=== PATIENT | male | born 1965 | race African-American/Black ===

== ENCOUNTER 2023-05-25 10:04 | Observation (INO) ==
--- NOTE | 2023-05-04 11:36 | PAT Medication Instructions ---
Medication Instructions Date of Service May 04, 2023 Home Medications albuterol sulfate 90 mcg/actuation aerosol inhaler (Ventolin HFA) 1 inh inhalation QID PRN apixaban 5 mg tablet (Eliquis) 5 mg PO BID budesonide-formoterol HFA 160 mcg-4.5 mcg/actuation aerosol inhaler (Symbicort) 1 inh inhalation BID furosemide 40 mg tablet (Lasix) 40 mg PO QAM metformin 500 mg tablet 500 mg PO BID montelukast 10 mg tablet 10 mg PO QAM sacubitril 24 mg-valsartan 26 mg tablet (Entresto) 1 tab PO BID dulaglutide 0.75 mg/0.5 mL subcutaneous pen injector (Trulicity) 0.75 mg subcut WK MEDICATION INSTRUCTIONS: Continue as directed albuterol sulfate 90 mcg/actuation aerosol inhaler (Ventolin HFA) 1 inh inhalation QID PRN (use if needed; BRING TO HOSPITAL) budesonide-formoterol HFA 160 mcg-4.5 mcg/actuation aerosol inhaler (Symbicort) 1 inh inhalation BID ASK your prescriber and surgeon apixaban 5 mg tablet (Eliquis) 5 mg PO BID (for spinal anesthesia: will need to hold Eliquis/apixaban at least 72 hours prior to surgery) DO NOT take the morning of surgery metformin 500 mg tablet 500 mg PO BID furosemide 40 mg tablet (Lasix) 40 mg PO QAM sacubitril 24 mg-valsartan 26 mg tablet (Entresto) 1 tab PO BID Take morning of surgery With a small sip of water, OTHERWISE NOTHING TO EAT OR DRINK AFTER MIDNIGHT: montelukast 10 mg tablet 10 mg PO QAM Take evening before surgery metformin 500 mg tablet 500 mg PO BID sacubitril 24 mg-valsartan 26 mg tablet (Entresto) 1 tab PO BID Other Notes HOLD 7 DAYS PRIOR TO SURGERY: dulaglutide 0.75 mg/0.5 mL subcutaneous pen injector (Trulicity) 0.75 mg subcut WK (Please contact prescriber to let them know that you will be holding this medication prior to surgery. If they would like to add/substitute another medication in the meantime, please contact [facility] at the below number to update) If you have any questions please call us at [phone] or [phone] or [phone] or [phone]
--- NOTE | 2023-05-07 13:18 | Anesthesiology Consultation ---
Date of Service May 07, 2023 Assessment & Plan (1) Encounter for pre-operative examination: - Check BSG AM DOS - Infectious disease screening: Per assessment on 05/07/23: No known infectious disease contacts. Patient with recent sinus infection 2 weeks ago with persistent congestion. Currently on 10 day course of Cipro (switched from doxycycline d/t adverse reaction). Patient states Covid home test has been negative. Covid test performed at [facility] 05/07/23 came back negative. Patient to finish abx and monitor symptoms. Okay to proceed pending evaluation DOS. - Outpatient joint assessment: Pt currently scheduled for inpatient pathway. If surgeon requests review for outpatient joint pathway, patient is not recommended candidate for outpatient joint program from anesthesia standpoint based on available information. - S/P Left TKA (11/27/15): SAB at L3/4 x2 + PNB at [facility] - Cardiology visit (10/22/22): "NICM, CHF, HTN, Afib.. Yearly F/U.. Nonischemic cardiomyopathyrecovered LV function, with normal coronary arteries. Currently on Aldactone and Entresto.. Congestive heart failurehistory of, EF 39% by MRI 2018, EF normalized by echo 12/2020, NYHA class II, appears euvolemic.. Hypertensionbenign essential, controlled.. Atrial fibrillationparoxysmal, noted on recent CardioNet, is currently in sinus rhythm, has been essentially asymptomatic.[id number] score 2 (CHF NYHA II, HTN), monitor, continue Eliquis, declining ablation" > One year f/u recommended. - Eliquis instructions: patient made aware that in order for spinal anesthesia, Eliquis needs to be held 72 hours prior to surgery. Patient voiced understanding/will check if okay with prescriber. - Trulicity instructions: Patient takes on Sundays. Patient informed at PAT visit to stop 7 days prior to surgery- voiced understanding. DOS 05/25. Advised last dose 05/16. Patient advised to check with prescriber to see if alternative diabetic management changes recommended while holding Trulicity. Chart Review Chart Review: Acceptable Risk for Surgery and Patient seen in Pre Admission Testing Teaching & Discussion Pre-Anesthesia Teaching/Discussion Notes: Instructed NPO after midnight before surgery,except medications with 15 cc of water. Medication instructions provided according to the PAT guidelines. History Surgery Operation Date: 05/25/23 09:45 Proposed Procedures p Right Total Knee Arthroplasty - Chaitanya Ellis DO Height/Weight Height: 6 ft 2.5 in Weight: 139.253 kg Allergies Allergy/AdvReac Type Severity Reaction Status Date / Time Penicillins Allergy Mild Rash Verified 05/03/23 13:14 doxycycline AdvReac Genital Verified 05/07/23 13:40 outbreak Medications Home Medications Medication Instructions Recorded Confirmed Last Taken albuterol sulfate 90 mcg/actuation 1 inh inhalation QID PRN SHORT OF 08/26/22 05/03/23 Unknown aerosol inhaler (Ventolin HFA) BREATH apixaban 5 mg tablet (Eliquis) 5 mg PO BID 08/26/22 05/03/23 Unknown budesonide-formoterol HFA 160 1 inh inhalation BID 08/26/22 05/03/23 Unknown mcg-4.5 mcg/actuation aerosol inhaler (Symbicort) furosemide 40 mg tablet (Lasix) 40 mg PO QAM 08/26/22 05/03/23 Unknown metformin 500 mg tablet 500 mg PO BID 08/26/22 05/03/23 Unknown montelukast 10 mg tablet 10 mg PO QAM 08/26/22 05/03/23 Unknown sacubitril 24 mg-valsartan 26 mg 1 tab PO BID 08/26/22 05/03/23 Unknown tablet (Entresto) dulaglutide 0.75 mg/0.5 mL 0.75 mg subcut WK 05/03/23 05/03/23 05/02/23 subcutaneous pen injector (Trulicity) Past Medical History Medical History Asthma Atrial fibrillation Follows with Dr. Glil CHF (congestive heart failure) Chronic obstructive pulmonary disease Diabetes mellitus, type 2 GERD (gastroesophageal reflux disease) Hypertension NICM (nonischemic cardiomyopathy) Obesity Scoliosis No surgical intervention or bracing needed Sleep apnea BIPAP (compliant) Exercise / Class Metabolic Activity II 4-5 Yardwork/Stairs/Walk up hill (one FS (no CP, no SOB)) Past Family History Family History Other No family history of adverse response to anesthesia Past Surgical History Surgical History H/O sinus surgery H/O thumb surgery Tendon repair History of colonoscopy History of total knee replacement Left TKA (11/27/15): SAB at L3/4 x2 + PNB at [facility] Past Anesthesia History No Hx of Anesthesia Complications and No Family Hx of Anesthesia Complications History of PONV No Hx of PONV and No Hx of Motion Sickness Social History Smoking Status: Current every day smoker tobacco type: cigarettes Smoking cigarettes per day: 15 cigs/day Do You Dip or Chew Tobacco: No Hx Alcohol Use: Yes Alcohol type: hard liquor alcohol intake frequency: a few times a month Hx Substance Use: No substance use type: does not use Review of Systems Patient denies chest pain, shortness of breath, dyspnea on exertion, fever, chills, cough, wheezing, palpitations. Physical Exam Vital Signs VITALS BP 122/77 P 98 TEMP 98.8 SP02 97%RA RESP 16 PHYSICAL Full cervical extension range of motion. Full TMJ range of motion. TMD 4 finger breaths Mallampati Score 3 Dentition: + cracked tooth (right upper side) Lungs: clear throughout to auscultation Cardiac: regular rate and rhythm, no murmurs noted Spine: normal Carotid arteries: negative bruit Extremities: no LE edema Lab Results Anesthesia Preop Results Results Anesthesia Widget: WBC 8.25 K/ul (4.8-10.8) 05/07/23 Hgb 13.8 g/dl (14.0-18.0) L 05/07/23 Hct 42.5 % (42.0-52.0) 05/07/23 Plt 236 K/uL (130-400) 05/07/23 Na 137 mmol/L (136-145) 05/07/23 K 4.1 mmol/L (3.5-5.1) 05/07/23 Cl 105 mmol/L (98-107) 05/07/23 CO2 26 mmol/L (21-32) 05/07/23 BUN 13 mg/dl (6-23) 05/07/23 Creat 1.07 mg/dl (0.6-1.4) 05/07/23 Glucose Level 142 mg/dl (70-99(Fasting)) H 05/07/23 PT 10.3 Seconds (9.0-12.0) 05/07/23 PTT 27.9 Seconds (21.0-31.0) 05/07/23 INR 0.9 (0.9-1.1) 05/07/23 HA1c 6.6 % (4.5-5.6) H 05/07/23 Urine Color Yellow 05/07/23 Urine Appearance Clear (Clear) 05/07/23 Urine pH 5.5 (4.5-7.5) 05/07/23 Urine Specific Manson 1.016 (1.000-1.030) 05/07/23 Urine Protein Negative (Negative) 05/07/23 Urine Glucose (UA) Negative (Negative) 05/07/23 Urine Ketones Negative (Negative) 05/07/23 Urine Blood Negative (Negative) 05/07/23 Urine Nitrite Negative (Negative) 05/07/23 Urine Bilirubin Negative (Negative) 05/07/23 Urine Urobilinogen Negative (Negative) 05/07/23 Urine Leukocyte Esterase Negative (Negative) 05/07/23 Blood Type B Positive 05/07/23 Antibody Screen NEGATIVE 05/07/23 Testing Electrocardiogram Date: 08/28/22 Findings: + SB @ (59bpm ) Otherwise normal EKG per cardio. Chest X-Ray Date: 08/28/22 Findings: + NAD FINDINGS: PA and lateral chest radiographs are compared to study dated 11/11/2015. The cardiomediastinal silhouette is top normal for projection. The lungs and pleural spaces are clear noting bibasilar atelectasis. There is no pneumothorax. The bony thorax appears intact. Degenerative change and scoliosis is noted in the spine. Echocardiogram Date: 10/15/20 EF: 55-60% LV Function: normal Other Findings: + diastolic dysfunction (Grade 1) LA mildly enlarged Ascending aorta is dilated at 4.2 cm Cardiac Catheterization Date: 06/2018 " EF 40%, angiographically normal coronaries" per received 10/2022 cardiology office visit note. Attempts to obtain official report unsuccessful. Other Testing Cardiac MRI Date: 08/2018 "Mildly dilated LV, EF 39%, diffuse LV hypokinesis, no abnormal late gadolinium enhancement to suggest prior infarct/scar/infiltrative CMP, no LVH or HCM, moderate byatrial enlargement, mild MR/TR" per received 10/2022 cardiology office visit note. Attempts to obtain official report unsuccessful.
--- NOTE | 2023-05-11 08:06 | History & Physical Report ---
Date of Service May 11, 2023 date of surgery: 05/25/23 Procedure: Right Total Knee Arthroplasty Surgeon: Chaitanya Ellis Assessment & Plan (1) Arthritis of right knee: Plan: Risk and benefits of the procedure discussed in detail, patient like to proceed with a right total knee replacement. We will resume his Eliquis postoperatively for DVT prophylaxis. We will plan an overnight stay in the hospital, he would like to be discharged home with outpatient physical therapy, he would like to go to our facility in [place]. He will follow-up 2 weeks postop for routine postoperative care or sooner if is having any problems otherwise has no other questions or concerns The risks and benefits have been discussed including, but not limited to, risk of infection, nerve injury, stiffness, loss of motion, failure to improve, etc. Reasonable outcomes and options of treatment were discussed. An explanation of appropriate alternatives to the procedure that may be advantageous were discussed and their risks and benefits, as well as the risks and benefits of not proceeding with treatment. I offered to answer any additional inquiries concerning the treatment involved. All the patient's questions were answered. The patient is agreeable, understanding of the treatment plan and alternatives, and wishes to proceed with the treatment plan. History of Present Illness Chief Complaint: Right knee pain Primary Care Provider: Chirag France MD Nolan is a pleasant 57-year-old male presents for preop evaluation prior to his right knee replacement. Nolan has been having pain in his knee for many years now is gradually worsening. He has tried previous corticosteroid injection as well as oral anti-inflammatories and Tylenol without any relief. His pain is now affecting his daily activities rates current pain is 7 out of 10. He admits to pain, stiffness and difficulty with stairs. This point time is failed conservative measures and would like to proceed with a right total knee replacement. He is now unable to take anti-inflammatories due to being on Eliquis Allergies Allergy/AdvReac Type Severity Reaction Status Date / Time Penicillins Allergy Mild Rash Verified 05/03/23 13:14 doxycycline AdvReac Genital Verified 05/07/23 13:40 outbreak Home Medications Medication Instructions Recorded Confirmed Type albuterol sulfate 90 mcg/actuation 1 inh inhalation QID PRN SHORT OF 08/26/22 05/03/23 History aerosol inhaler (Ventolin HFA) BREATH apixaban 5 mg tablet (Eliquis) 5 mg PO BID 08/26/22 05/03/23 History budesonide-formoterol HFA 160 1 inh inhalation BID 08/26/22 05/03/23 History mcg-4.5 mcg/actuation aerosol inhaler (Symbicort) furosemide 40 mg tablet (Lasix) 40 mg PO QAM 08/26/22 05/03/23 History metformin 500 mg tablet 500 mg PO BID 08/26/22 05/03/23 History montelukast 10 mg tablet 10 mg PO QAM 08/26/22 05/03/23 History sacubitril 24 mg-valsartan 26 mg 1 tab PO BID 08/26/22 05/03/23 History tablet (Entresto) dulaglutide 0.75 mg/0.5 mL 0.75 mg subcut WK 05/03/23 05/03/23 History subcutaneous pen injector (Trulicity) Past Med/Surg History Medical History Asthma Atrial fibrillation Follows with Dr. Gill CHF (congestive heart failure) Chronic obstructive pulmonary disease Diabetes mellitus, type 2 GERD (gastroesophageal reflux disease) Hypertension NICM (nonischemic cardiomyopathy) Obesity Scoliosis No surgical intervention or bracing needed Sleep apnea BIPAP (compliant) Surgical History H/O sinus surgery H/O thumb surgery Tendon repair History of colonoscopy History of total knee replacement Left TKA (11/27/15): SAB at L3/4 x2 + PNB at [facility] Family History Other No family history of adverse response to anesthesia Social History Smoking Status: Current every day smoker Tobacco Type: Cigarettes Cigarettes Per Day: 15 cigs/day; Second Hand Exposure: No; Do You Dip or Chew Tobacco: No; Hx Alcohol Use: Yes Alcohol type: hard liquor Hx Substance Use: No Preferred Language: [place] Communication Ability: Effective 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 Beliefs That Will Affect Care: None Current Living Situation: Significant Other Feels Safe at Home: Yes Assistive Devices: BiPap and Glasses Review of Systems Review of Systems: All systems reviewed & are unremarkable except as noted in HPI & below Constitutional: no fever, no chills and no sweats Respiratory: no cough and no dyspnea Cardiovascular: no chest pain, no dyspnea and no orthopnea Gastrointestinal: no abdominal pain, no nausea and no vomiting Musculoskeletal: as per Subjective / HPI Physical Exam Constitutional: WD/WN, vitals as above no acute distress Respiratory: normal respiratory effort, lungs clear to auscultation no respiratory distress, no labored breathing and does not use accessory muscles Cardiovascular: Heart Sounds: no murmur and no cardiac rub Gastrointestinal (Abdomen): normal bowel sounds, soft, nontender, no hepatosplenomegaly Musculoskeletal: Knee: + knee abnormal to inspection (Right Knee: ), + effusion (+1 effusion), + limited ROM of knee (ROM 0/3/110), + knee ROM with crepitation, + joint line tenderness (medial joint line) and + Julia's sign positive; no deformity, no skin erythema, no ecchymosis, no valgus laxity, no varus laxity, anterior drawer test negative, Destin's sign negative and pivot shift test negative Results & Data Results & Data Diagnostic Findings Right Knee X-ray: Right knee series showing advanced degenerative changes to the right knee, narrowing of the medial compartment and patello-femoral joint with patellar spurring noted, findings showing joint space narrowing of the medial compartment and patello-femoral joint, osteophyte formation and subchondral sclerosis noted. overall varus alignment. no acute bony pathology noted.
[~2023-05-25 10:04] MED LIST: ACETAMINOPHEN 500 MG TAB PO SCH; ALLERGY Noted to ORDERED Medication SCH; BUPIVACAINE 0.5 % 5 MG/1 ML PF 10ML VIAL ONE; CeleBREX 200 MG CAP PO SCH; FAMOTIDINE 20 MG TAB PO SCH; GABAPENTIN 600 MG DOSE PO SCH; LR 500ML BOLUS, THEN 15ML/HR IV SCH; LR 60ML/HR IV SCH; METOCLOPRAMIDE HCL 10 MG TABLET PO SCH; ROPIVACAINE 0.5% 5 MG/ML 30 ML VIAL ONE; ROPIVACAINE 0.5% HCL/PF 150 MG, BUPIVACAINE 0.75% MPF 20 ML, EPINEPHrine 30MG/30ML (OR ... INSTIL SCH; TRANEXAMIC ACID 1,000 MG **IV Intra-op IV SCH; TRANEXAMIC ACID 1,000 MG **IV Pre-op IV SCH; VANCOMYCIN HCL 2,000 MG in SODIUM CHLORIDE 0.9% 500 ML IV SCH; dexAMETHasone 4 MG TAB PO SCH
--- NOTE | 2023-05-25 11:22 | History & Physical Bridge Note ---
Date of Service May 25, 2023 History & Physical Bridge Note I have examined the patient, reviewed the History & Physical and in the interval since the performance of the History & Physical I have noted the following changes of clinical significance: no changes noted
[2023-05-25] MEDS ORDERED: MIDAZOLAM HCL 1 MG/ML 2ML VIAL ONE (12:15)
[2023-05-25] MEDS ORDERED: KETOROLAC 30 MG/ML VIAL ONE (12:16)
[2023-05-25] MEDS ORDERED: GLYCOPYRROLATE 0.2 MG/ML VIAL ONE (12:16)
[2023-05-25] MEDS ORDERED: ONDANSETRON INJ 2 MG/ML 2 ML VIAL ONE (12:16)
[2023-05-25] MEDS ORDERED: PROPOFOL IV EMULSION 10 MG/ML 20 ML VIAL IV ONE ×3 (12:16→14:47)
[2023-05-25] MEDS ORDERED: LIDOCAINE 2% 2 ML VIAL/AMP(20MG/ML) INFIL ONE (12:16)
[2023-05-25] MEDS ORDERED: ORTHO JOINT ANESTHETIC ONE (13:37)
[2023-05-25] MEDS ORDERED: KETAMINE 50 MG/5 ML SYRINGE ONE (14:09)
[2023-05-25] MEDS ORDERED: HYDROmorphone INJ 2 MG/ML SYR/VIAL IV PRN (15:08)
[2023-05-25] MEDS ORDERED: ONDANSETRON INJ 2 MG/ML 2 ML VIAL IV PRN ×2 (15:08→17:21)
[2023-05-25] MEDS ORDERED: ATROPINE SULFATE 0.1 MG/ML 10ML SYR IV PRN (15:08)
[2023-05-25] MEDS ORDERED: fentaNYL citrate PF 100 MCG/2 ML VIAL IV PRN (15:08)
[2023-05-25] MEDS ORDERED: ePHEDrine sulfate 50 MG/ML AMP IV PRN (15:08)
[2023-05-25] MEDS ORDERED: PROMETHAZINE HCL 12.5 MG in SODIUM CHLORIDE 0.9% 50 ML IV PRN (15:08)
[2023-05-25] MEDS ORDERED: diphenhydrAMINE 50 MG/ML VIAL ONE (15:33)
--- NOTE | 2023-05-25 15:39 | Operative Report ---
Post Operative Report Pre & Post Diagnosis Operation Date: 05/25/23 12:25 Pre-Op Diagnosis: Right Knee Osteoarthritis Post-Op Diagnosis: Right Knee Osteoarthritis I identified the patient and participated in the time-out.: Yes Procedure Operation Date: 05/25/23 12:25 Actual Procedures p Right Total Knee Arthroplasty(Right)Utilizing [employer] patient-matched total knee arthroplasty size femur 7 tibia 7 poly 13 patella 35 sebastian Ellis DO Surgeon Chaitanya Ellis DO Gis Software Developer Devyn AGUILAR Estimated Blood Loss 5 Findings Consistent with Post-Op Diagnosis Patient presents with severe end-stage tricompartmental degenerative joint disease eburnated [id number] marginal osteophytes subchondral sclerosis marginal osteophytes with subchondral cystic changes and a moderate to large eff usion Specimens Bone and cartilage Drains Medium bore Hemovac Anesthesia Type MAC Spinal Regional Complications none Disposition Accompanied Patient To Recovery: No Disposition: Recovery Room Indications Patient has a severe end-stage DJD of the right knee after failed attempted conservative management getting physical therapy anti-inflammatories relative rest activity modification bracing intra-articular corticosteroid and viscosupplementation Description of Procedure After proper prepping and draping of the Right lower extremity anterior midline incision was made over the region of the extensor extensor mechanism after meticulous hemostasis was obtained and maintained in subcutaneous tissues a medial parapatellar incision was made The patella was subluxed lateralward the medial lateral gutter were cleaned from any hypertrophic synovitis and scar tissue of the distal femoral block was placed and the distal femoral osteotomy cut was made subsequently the chamfers anterior and posterior osteotomy cuts were made utilizing the 4-in-1 block the tibia was subsequently subluxed anteriorward medial and ateral meniscal remnants were excised in their entirety remnants of the anterior and posterior cruciate ligaments were excised in their entirety excellent exposure of the proximal tibia was obtained the tibial osteotomy guide was placed on the proximal tibial osteotomy cut was made once again the knee was irrigated with copious amounts of sterile saline solution the patella was subsequently everted lateralward thickened scar tissue around the patella was removed the patella was subsequently cut utilizing a freehand technique and was drilled prepared for final preparation and placement of patella socially flexion-extension gaps were checked and the equal and symmetric trials were placed to the appropriate femoral and tibial trials with poly-spacer being placed for equal flexion and extension gaps and full range of motion including extension to 0 and flexion to 140 the trial components after having been taken to recovery range of motion was subsequently removed meticulous hemostasis was obtained and maintained subsequently a knee block injection of joint cocktail including ropivacaine 0.5% 150 mg. Bupivacaine 0.5% epinephrine 1-200,030 mL's toradol 30 mg dexamethasone 4 mg ketamine 10 mg clonidine 100 micrograms normal saline solution 30 mg was infiltrated into the soft tissues of the posterior knee medial lateral gutters and periosteal synovium special attention was paid to protect neurovascular structures at all times subsequently trial components having been removed the knee was irrigated with sterile saline solution. debris was removed the proximal tibia was subsequently prepared and was made ready for the placement of the tibial component tibial component was also cemented and tamped into position the femoral component was subsequently placed and cemented in the position the patellar component was subsequently cemented in position because hemostasis once again obtained and maintained wound having been thoroughly irrigated with debridement and debridement lavage was performed as well as a medial parapatellar incision closed with #1 Vicryl in interrupted fashion subcutaneous was closed with #2 Vicryl skin was closed with skin clips. PA-C was necessary for prepping and drapping as well as wound closure of deep fascia Sub cutaneous tissue and skin and was necessary for the case. A sterile compressive dressing was placed patient was taken to recovery in stable condition of report dictated by Caleb I attest to the content of the Intraoperative Record and any orders documented therein. Any exceptions are noted below.Due to the complex nature of the procedure, the entire surgery was performed with the operational assistance of Devyn BRITO. The library serials assistant, under direct supervision, was involved in the actual performance of all aspects of the surgical procedure including hemostasis, tissue retraction and incision, instrument management, patient positioning, and wound closure. I attest to the content of the Intraoperative Record and any orders documented therein. Any exceptions are noted below.
--- NOTE | 2023-05-25 17:11 | Anesthesiology Progress Note ---
Date of Service May 25, 2023 Anesthesia Post Procedure Vital Signs Vital Signs: Temp Pulse Pulse Resp BP Pulse Ox O2 Del Method 05/25/23 17:00 36.4 C L 82 18 105/65 96 Room Air 05/25/23 16:50 77 24 98/66 L 94 Room Air 05/25/23 16:40 82 22 99/63 L 95 Room Air 05/25/23 16:30 93 H 18 106/58 L 95 Oxymask 05/25/23 16:22 36.4 C L 88 16 101/74 98 Oxymask 05/25/23 11:05 36.7 C 80 18 96/66 L 96 Room Air O2 Flow Rate 05/25/23 17:00 05/25/23 16:50 05/25/23 16:40 05/25/23 16:30 4 05/25/23 16:22 4 05/25/23 11:05 Transfer of Care Handoff Completed per policy Notes Mental Status: alert / awake / arousable Patient Amnestic to Procedure: Yes Nausea / Vomiting: adequately controlled Pain: adequately controlled Airway Patency, RR, SpO2: stable & adequate BP & HR: stable & adequate Hydration State: stable & adequate Neuraxial Anesthesia: was administered and sensory block is resolving Anesthetic Complications: no major complications apparent and Pt Satisfied with anesthetic care
[2023-05-25] MEDS ORDERED: NALOXONE HCL 0.4 MG/1 ML VIAL/CARP IV PRN (17:21)
[2023-05-25] MEDS ORDERED: VANCOMYCIN CONSULT ACTIVE PRN (17:21)
[2023-05-25] MEDS ORDERED: diphenhydrAMINE 50 MG/ML VIAL IV PRN (17:21)
[2023-05-25] MEDS ORDERED: MAGNESIUM HYDROXIDE SUSP 30 ML UDC PO PRN (17:21)
[2023-05-25] MEDS ORDERED: SODIUM CHLORIDE 0.9% 1,000 ML IV SCH (17:21)
[2023-05-25] MEDS ORDERED: PHARMACY GLYCEMIC MGMT CONSULT PRN (17:21)
[2023-05-25] MEDS ORDERED: bisacodyL 10 MG SUPP PR PRN (17:21)
[2023-05-25] MEDS ORDERED: ALBUTEROL HFA 8 GM INHALER INH PRN (17:21)
[2023-05-25] MEDS: INSULIN ASPART PER UNIT CHARGE SC SCH ×2 (18:40→21:56)
--- NOTE | 2023-05-25 19:13 | XRay Report ---
XR knee RT 1 or 2V routine CLINICAL HISTORY: Postoperative evaluation. COMPARISON: None FINDINGS: Alignment of the total right knee arthroplasty is anatomic. There is no periprosthetic fra cture or unexpected radiopaque foreign body. There is a surgical drain. IMPRESSION: Expected findings following total right knee arthroplasty. ACT 112: Negative or not required by law. Electronically signed by: Kameron Gautam M.D. 05/25/2023 7:12 PM
[2023-05-25] MEDS ORDERED: metFORMIN HCL 500 MG TAB PO SCH (21:00)
[2023-05-25] MEDS ORDERED: SENNA 8.6 MG TAB PO SCH (21:00)
[2023-05-25] MEDS: DOCUSATE SODIUM 100 MG CAP PO SCH (22:05)
[2023-05-25] MEDS: VALSARTAN/SACUBITRIL 26/24MG TAB PO SCH (22:05)
[2023-05-25] MEDS: ACETAMINOPHEN 500 MG TAB PO SCH (22:06)
[2023-05-25] MEDS: HYDROmorphone INJ 0.5 MG/0.5 ML SYR IV PRN (22:06)
[2023-05-26] MEDS: oxyCODONE HCL IR 5 MG TAB (IMMEDIATE RELEASE) PO PRN ×3 (00:11→09:29)
[2023-05-26] MEDS ORDERED: VANCOMYCIN HCL 2,000 MG in SODIUM CHLORIDE 0.9% 500 ML IV SCH (01:00)
[2023-05-26] MEDS: HYDROmorphone INJ 0.5 MG/0.5 ML SYR IV PRN (02:43)
[2023-05-26] MEDS ORDERED: HYDROmorphone INJ 0.5 MG/0.5 ML SYR IV STA (03:11)
[2023-05-26] MEDS: ACETAMINOPHEN 500 MG TAB PO SCH (05:24)
[2023-05-26] MEDS ORDERED: MoRPHine SULFATE 4 MG/ML 1 ML CARP\\VIAL IV PRN (06:43)
--- NOTE | 2023-05-26 06:47 | Orthopedic Progress Note ---
Date of Service May 26, 2023 Assessment & Plan (1) Arthritis of right knee: Plan: Postop day 1 status post right total knee arthroplasty. PT/OT protocols. Weightbearing as tolerated. DVT prophylaxis-apixaban 1 p.o. twice daily, SCDs, CAMMIE gonzalez. Pain management-switch hydromorphone to morphine. Continue orals as written. DC planning-patient is planning for outpatient PT upon discharge. Plan to review laboratory values prior to discharge. If patient is progressing well we will plan discharge to home today. Admission and Anticipated Discharge Date Admission Date: May 25, 2023 Subjective Postop day 1 Patient sitting up in bed awake and alert. States he did not sleep at all during the night. States he had some increased pain. He used the IV Dilaudid of which he feels did not work as well as morphine. Would like to have it switched if he is going to continue to use it. Multiple questions about physical therapy etc. All questions answered to the best my ability. Mild pain in posterior aspect of the knee consistent with surgery. Patient states that he has been up ambulating off and on throughout the night. Physical Exam Physical Exam: Dressings are clean, dry, and intact. Calves are soft nontender. Neurovascular is intact. Toes are mobile. He has good dorsiflexion and plantarflexion of the right foot. Hemovac drainage was 125 mL from the previous shift. Results & Data Vital Signs (Past 12 Hours) Vital Signs Temp Pulse Resp BP Pulse Ox O2 Del Method 05/26/23 03:00 37.0 C 65 20 103/59 L 95 Room Air 05/25/23 23:44 36.4 C L 65 18 105/62 94 Room Air 05/25/23 19:50 37.1 C 91 H 18 118/85 96 Room Air
[2023-05-26] MEDS: DOCUSATE SODIUM 100 MG CAP PO SCH (08:33)
[2023-05-26] MEDS: VALSARTAN/SACUBITRIL 26/24MG TAB PO SCH (08:33)
[2023-05-26 08:44] LABS: Hemoglobin 10.9 g/dl (14.0-18.0); Mean Corpuscular Hemoglobin 29.3 pg (25.0-34.0); Mean Corpuscular Hgb Conc 32.1 g/dL (32.0-36.0); Mean Corpuscular Volume 91.4 fL (80.0-100.0); Mean Platelet Volume 11.1 fL (9.4-12.4); Platelet Count 195 K/uL (130-400); RDW Coefficient of Variation 13.9 % (11.5-14.5); RDW Standard Deviation 46.5 fL (36.4-46.3); Red Blood Count 3.72 M/uL (4.70-6.10); White Blood Count 11.54 K/ul (4.8-10.8)
[2023-05-26 08:50] LABS: BUN Creatinine Ratio 20.5 (10-20); Calcium 8.5 mg/dl (8.6-10.3); Creatinine Clr Calc Pharmacy 110.5 ml/min; Est GFR (African American) 84.7 ml/min; Potassium 4.7 mmol/L (3.5-5.1)
[2023-05-26] MEDS ORDERED: FUROSEMIDE 40 MG TAB PO SCH (09:00)
[2023-05-26] MEDS ORDERED: PANTOprazole 40 MG TAB PO SCH (09:00)
[2023-05-26] MEDS ORDERED: MULTIVITAMIN TAB PO SCH (09:00)
[2023-05-26] MEDS ORDERED: FLUTICASONE/VILANTEROL 200/25MCG 14 PUFFS/INHALER INH SCH (09:00)
[2023-05-26] MEDS ORDERED: APIXABAN 5 MG TABLET PO SCH (09:00)
[2023-05-26] MEDS ORDERED: MONTELUKAST SODIUM 10 MG TABLET PO SCH (09:00)
[2023-05-26] MEDS: INSULIN ASPART PER UNIT CHARGE SC SCH (09:07)
--- NOTE | 2023-05-26 15:29 | Communication Note ---
Date of Service: May 26, 2023 Mr. Sinclair is a 57 y/o with Afib, HF, DM, HTN and ARSENIO who underwent uneventful TKA. I reviewed his chart including notes, vitals, labs, studies and discharge medications. Surgery was uneventful and he was discharged prior to hospitalist consultation being completed. He will resume his DOAC for DVT prophylaxis. I have no additional recommendations.
--- NOTE | 2023-05-26 18:54 | Discharge Summary ---
Date of Service May 26, 2023 Admission HPI Per Admitting Provider Broderick is a pleasant 57-year-old male presents for preop evaluation prior to his right knee replacement. Broderick has been having pain in his knee for many years now is gradually worsening. He has tried previous corticosteroid injection as well as oral anti-inflammatories and Tylenol without any relief. His pain is now affecting his daily activities rates current pain is 7 out of 10. He admits to pain, stiffness and difficulty with stairs. This point time is failed conservative measures and would like to proceed with a right total knee replacement. He is now unable to take anti-inflammatories due to being on Eliquis Admission Exam Per Admitting Provider Physical Exam Constitutional: WD/WN, vitals as above no acute distress Respiratory: normal respiratory effort, lungs clear to auscultation no respiratory distress, no labored breathing and does not use accessory muscles Cardiovascular: Heart Sounds: no murmur and no cardiac rub Gastrointestinal (Abdomen): normal bowel sounds, soft, nontender, no hepatosplenomegaly Musculoskeletal: Knee: + knee abnormal to inspection (Right Knee: ), + effusion (+1 effusion), + limited ROM of knee (ROM 0/3/110), + knee ROM with crepitation, + joint line tenderness (medial joint line) and + Julia's sign positive; no deformity, no skin erythema, no ecchymosis, no valgus laxity, no varus laxity, anterior drawer test negative, Destin's sign negative and pivot shift test negative Principal Diagnosis Right Knee Osteoarthritis Discharge Data Allergies Allergy/AdvReac Type Severity Reaction Status Date / Time Penicillins Allergy Mild Rash Verified 05/25/23 10:30 doxycycline AdvReac Genital Verified 05/25/23 10:30 outbreak Consultations 05/25/23 17:21 Consult Hospitalist Routine Procedures Performed Operation Date: 05/25/23 12:25 Actual Procedures p Right Total Knee Arthroplasty(Right) - Chaitanya Ellis DO Ordered Studies 05/25/23 05:00 US - OR guided needle placemen Routine Hospital Course (1) Arthritis of right knee: Patient:BRODERICK HICKEY Admit Date:05/25/23 MR#:[id number] Att Phy:Chaitanya Ellis,D.O. Acct ID:[id number] Vanessa Phy:Nancy Olson MD Date:1965 José Miguel Phy: Age:57 Location:3N Sex:M Room/Bed:N387-2 cc: ~ *NOTICE TO RECEIVING LIBERTARIAN/AGENCY This information is strictly Confidential and protected under [place] law. [place] law prohibits you from making any further disclosure of this information unless further disclosure is expressly permitted by the written consent of the person to whom it pertains or is authorized by law. A general authorization for the release of medical or other information is not sufficient for this purpose. Hospital accepts no responsibility if the information is made available to any other person, INCLUDING THE PATIENT. Date of Service May 26, 2023 Assessment & Plan (1) Arthritis of right knee: Plan: Postop day 1 status post right total knee arthroplasty. PT/OT protocols. Weightbearing as tolerated. DVT prophylaxis-apixaban 1 p.o. twice daily, SCDjoe, CAMMIE gonzalez. Pain management-switch hydromorphone to morphine. Continue orals as written. DC planning-patient is planning for outpatient PT upon discharge. Plan to review laboratory values prior to discharge. If patient is progressing well we will plan discharge to home today. Admission and Anticipated Discharge Date Admission Date: May 25, 2023 Subjective Postop day 1 Patient sitting up in bed awake and alert. States he did not sleep at all during the night. States he had some increased pain. He used the IV Dilaudid of which he feels did not work as well as morphine. Would like to have it switched if he is going to continue to use it. Multiple questions about physical therapy etc. All questions answered to the best my ability. Mild pain in posterior aspect of the knee consistent with surgery. Patient states that he has been up ambulating off and on throughout the night. Physical Exam Physical Exam: Dressings are clean, dry, and intact. Calves are soft nontender. Neurovascular is intact. Toes are mobile. He has good dorsiflexion and plantarflexion of the right foot. Hemovac drainage was 125 mL from the previous shift. Results & Data Vital Signs (Past 12 Hours) Vital Signs Temp Pulse Resp BP Pulse Ox O2 Del Method 05/26/23 03:00 37.0 C 65 20 103/59 L 95 Room Air 05/25/23 23:44 36.4 C L 65 18 105/62 94 Room Air 05/25/23 19:50 37.1 C 91 H 18 118/85 96 Room Air Signed By: <Electronically signed by Chaitanya Ellis DO> 05/26/23 0717 <Electronically signed by Devyn Viera PA-C> 05/26/23 0647 Created:05/26/23 0644 Total Time Total Time Spent Total Time Spent (In Minutes): 5 Discharge Plan Discharge Items Patient Disposition: Home - Self-Care Reason For Visit: Right Knee Osteoarthritis Discharge Diagnosis: Right Knee Osteoarthritis Activity: Per Instructions section Weightbearing: Full weightbearing Non-emergency contact: Surgeon Call non-emergency contact if: you have any medication questions, your pain is not controlled, your temperature is above 101.5, your wound has increased redness and your wound has increased drainage Follow-up/Referrals: Chaitanya Ellis DO [Surgeon] - (Follow up with in 2 weeks from the day of surgery for your first post operative visit., ) Chirag France MD [Outside Practitioners] - Diet: Regular Addtl Attending Provider Instructions: ACTIVITY RECOMMENDATIONS: SELF CARE INSTRUCTIONS AFTER TOTAL KNEE REPLACEMENT A. You may need to continue a physical therapy program after discharge from the hospital. There are several options available to you. Your doctor will assist you in selecting the best one for you. 1. An out-patient facility 2 to 3 times a week for therapy or home therapy. 2. Continue working on all exercises taught to you in the hospital. Your goals should be to increase bending of your knee to 90 degrees and beyond and to fully straighten your knee. B. You may progress at your own pace from walking with a walker or crutches to a cane; then to no assistive devices. C. Make walking a part of your daily routine. Be up as much as comfortable with rest periods throughout the day. Rest with leg elevation is very important. Use the ice wrap frequently for the first 3-4 weeks. D. There are no restrictions on activities. You may ride in a car, shop, participate in tavern operator and all social activities. E. Wear the long elastic stockings (CAMMIE hose) 20 hours a day for 2 weeks after surgery. They can be removed several times a day for laundering and for a bath. F. You may shower, no tub baths until cleared by your doctor. SPECIAL CARE INSTRUCTIONS: VERY IMPORTANT TO READ AND REVIEW A. There are a few signs you need to watch for after you are home. Call [facility] if you notice any of the followin. Increased severe knee pain. Some pain is expected especially when you exercise. 2. Increased swelling in your leg or knee; pain or swelling of the calf muscle in either lower leg. 3. Any fluid drainage from the incision. 4. Shortness of breath or chest pain. B. Please call [facility] at if you have any concerns or questions about your operation or recovery. The doctor or his nurse will return your call promptly. C. You must take antibiotics before dental work, bladder, bowel or other surgery. Your doctor will provide you with a permanent care to carry describing this precaution. IMPORTANT: * REMEMBER TO TAKE APIXABAN 5 MG, TWICE DAILY THIS IS YOUR BLOOD THINNER. * CALL IF INCREASED PAIN, REDNESS, DRAINAGE OR FEVER GREATER THAT 101. * WEAR CAMMIE HOSE 20 HOURS PER DAY FOR 2 WEEKS. * Frantz Dressing - This is a large suction dressing covering your incision. This will help pull any excess drainage from the wound and allow your incision to heal properly. You may shower with this if you can keep the unit outside of the shower. If any bleeding or leakage is noted please call your doctor's office. This will remain on your incision for 7 days and then should be removed. This can be done yourself or by the home nursing staff if applicable. The entire unit is disposable once removed. Once removed, keep incision clean and dry. If redness or drainage is noted, please call your surgeon. . Once your Frantz Dressing has been removed, please follow the wound care instructions below. * DERMABOND Prineo- This is a mesh tape dressing that is covered with glue. It should remain in place until the incision is properly healed, usually 10-14 days. This dressing is designed to naturally slough off. You may trim the excess mesh tape as it peels off. Incision may be briefly wet in a shower. Dry immediately by blotting with a clean, dry towel. Do not bath or swim until instructed by your doctor. Do not scratch, rub, or pick at the dressing. Do not apply any topical ointments or lotions until dressing is completely removed and/or instructed by your doctor. There may be a small piece of suture material at one end of your incision. Do not pull or trim this. If it is bothersome or catching on clothing, you may cover it with a band-aid. FOLLOW UP VISIT: If appointment is not already scheduled: Please call [facility] to make a follow-up appointment for 2 weeks after your surgery at . Stand-Alone Forms: [facility], Smoking Cessation Medications and DC Order Prescriptions: New acetaminophen [Tylenol Extra Strength] 500 mg Tablet 1,000 mg PO Q8 14 Days Qty: 84 0RF polyethylene glycol 3350 [Miralax] 17 gram powder in packet 17 g PO DAILY PRN (Reason: constipation) Qty: 5 0RF sulfamethoxazole-trimethoprim [Bactrim DS] 800-160 mg tablet 1 tab PO Q12H Qty: 14 0RF oxycodone 10 mg tablet 10 mg PO Q4H PRN (Reason: pain) Qty: 18 0RF Continued furosemide [Lasix] 40 mg Tablet 40 mg PO QAM Patient Comments: PT ADMITS DOES NOT ALWAYS TAKE RX metformin 500 mg Tablet 500 mg PO BID montelukast 10 mg Tablet 10 mg PO QAM albuterol sulfate [Ventolin HFA] 90 mcg/actuation Hfa Aerosol Inhaler 1 inh INHALATION QID PRN (Reason: SHORT OF BREATH) budesonide-formoterol [Symbicort] 160-4.5 mcg/actuation Hfa Aerosol Inhaler 1 inh INHALATION BID Eliquis 5 mg Tablet 5 mg PO BID Entresto 24-26 mg Tablet 1 tab PO BID Trulicity 0.75 mg/0.5 mL Pen Injector 0.75 mg SUBCUT WK pantoprazole 40 mg Tablet,Delayed Release (Dr/Ec) 40 mg PO DAILY Discharge Orders: Discharge Order (Routine); Ordered 05/26/23 Ordered By: Devyn Viera Admission Data Admit Date/Time: 05/25/23 15:03 Attending Provider: Chaitanya Ellis Admit Provider: Chaitanya Ellis Primary Care Provider: Nancy Olson Other Providers: Chaitanya Beltran ; Karen Ndiaye Other Interventions: Discharge Summary Assessment (RN) Last Done: 05/26/23 11:41
== END 2023-05-26 12:27 | disposition home or self-care (01) ==
LOC: ASU 10:04 → 3N 10:04